=== PATIENT | male | born 2000 | race Native Hawaiian/Other Pacific Islander ===

== ENCOUNTER 2019-09-12 19:37 | Emergency (ER) | payer OTHER ==
[~2019-09-12] VITALS: Ht 182.9 cm; Wt 138.3 kg
[2019-09-12 20:55] LABS: PLATELET COUNT 223 K/uL (142-355)
[2019-09-12 21:00] LABS: POTASSIUM 3.4 mmol/L (3.6-5.2); SODIUM 139 mmol/L (136-145)
[2019-09-12 23:05] VITALS: BP 145/86; TEMP 98.8
== END 2019-09-12 23:05 | disposition home or self-care (01) ==
LOC: ED 19:37
PROVIDERS: Emergency Medicine
DX: K21.9 Gastro-esophageal reflux disease without esophagitis (principal); E66.9 Obesity, unspecified
CPT/HCPCS: 80053; 81000; 82150; 83690; 84484; 85027; 93005; 99283

== ENCOUNTER 2020-05-06 11:51 | Day surgery (SDC) | payer OTHER ==
[2020-05-05 12:44] LABS: PLATELET COUNT 181 K/uL (142-355)
[2020-05-05 13:10] LABS: POTASSIUM 3.4 mmol/L (3.6-5.2)
== END 2020-05-06 14:35 | disposition home or self-care (01) ==
LOC: OR 11:51
PROVIDERS: ATTEND Internal Medicine Gastroenterology
PROC: 0DB38ZZ Excision of Lower Esophagus, Via Natural or Artificial Opening Endoscopic (ICD-10-PCS; principal; 2020-05-06)
PROC: 0DB88ZZ Excision of Small Intestine, Via Natural or Artificial Opening Endoscopic (ICD-10-PCS; 2020-05-06)
PROC: 0DB68ZZ Excision of Stomach, Via Natural or Artificial Opening Endoscopic (ICD-10-PCS; 2020-05-06)
DX: K29.00 Acute gastritis without bleeding (principal); K21.00 Gastro-esophageal reflux disease with esophagitis, without bleeding; R10.13 Epigastric pain; R11.0 Nausea
CPT/HCPCS: 80053; 85027; J2001; J2704; J7120

== ENCOUNTER 2022-08-03 17:02 | Outpatient (CLI) | payer BC | END 2022-08-03 19:01 | disposition home or self-care (01) | LOC: RAD 17:02 | PROVIDERS: ATTEND Registered Nurse | DX: R06.02 Shortness of breath (principal) ==

== ENCOUNTER 2022-10-26 20:29 | Emergency (ER) | payer BC ==
[~2022-10-26] VITALS: Ht 182.9 cm; Wt 138.3 kg
[2022-10-26 20:30] VITALS: BP 159/96; TEMP 98.5
== END 2022-10-26 21:20 | disposition home or self-care (01) ==
LOC: ED 20:29
PROC: 2W3JX1Z Immobilization of Right Finger using Splint (ICD-10-PCS; principal; 2022-10-26)
DX: S61.216A Laceration without foreign body of right little finger without damage to nail, initial encounter (principal); W45.8XXA Other foreign body or object entering through skin, initial encounter
CPT/HCPCS: 99282; J7040